=== PATIENT | female | born 1930 | race Caucasian/White ===

== ENCOUNTER 2016-06-17 21:31 | Emergency (ER) | payer OTHER ==
[~2016-06-17] VITALS: Ht 152.4 cm; Wt 66.8 kg
[~2016-06-17 21:31] MED LIST: ASCORBIC ACID500 M3 PO; ASPIRIN325 MG PO; ATENOLOL50 MG PO; CEPHALEXIN500 MG PO; CITRACAL + D E1 EACH PO; CITRACAL PLUS1 EAC1 PO; CYANOCOBALAM1000 MCG PO; CYMBALTA60 MG PO; DAILY VALUE1 EACH PO; DAILY VITE1 EAC1 PO; FERROUS SULFAT325 MG PO; FLONASE16 G1 BOTH NARES; FLORASTOR250 MG PO; GEMFIBROZIL600 MG PO; HYZAAR 100-11 TABLET PO; KLOR-CON 88 MEQ PO; LEVOTHYROXINE50 MCG PO; LISINOPRIL20 MG PO; LITE COAT ASPI325 M1 PO; LOSARTAN-HCTZ1 EAC2 PO; METRONIDAZOLE500 MG PO; MULTIVITAMIN1 EAC2 PO; PERCOCET 5/31 TABLET PO; PRILOSEC OTC20 MG PO; PRINIVIL20 MG PO; RANITIDINE HCL150 MG PO; SYNTHROID50 MCG PO; VITAMIN B-6100 MG PO; VITAMIN D-32000 UNI2 PO; VITAMIN D2000 UNIT PO; VITAMIN D31000 UNIT PO; [UNRECOGNIZED DRUG - OTHER] TP; [UNRECOGNIZED DRUG - OTHER] TP
[2016-06-17 21:50] LABS: POINT-OF-CARE METER ID UU13113778; POINT-OF-CARE USER ID NUTMMM10
[2016-06-17 22:05] LABS: HEMATOCRIT 44.8 % (36.0-46.0); MCH 30.2 PG (29.0-34.0); MCHC 33.3 G/DL (30.0-36.0); MCV 90.9 FL (83-99); MEAN PLAT.VOLUME 10.9 uM^3 (9.5-12.4); PLATELET COUNT 175 K/uL (156-360); RBC DIS.WIDTH-CV 12.9 % (11.8-14.6); RBC DIS.WIDTH-SD 41.9 % (39-53); RED BLOOD COUNT 4.93 M/uL (3.80-5.20)
[2016-06-17 22:09] LABS: CHLORIDE 105 mEq/L (99-109); POTASSIUM 4.2 mEq/L (3.7-5.4); SODIUM 141 mEq/L (136-147)
[2016-06-17 22:12] LABS: GLUCOSE 379 mg/dL (70-99)
[2016-06-17 22:13] LABS: ANION GAP 14 MEQ/L (2-14); TOTAL BILIRUBIN 0.4 mg/dL (0.0-1.0)
[2016-06-17 22:15] LABS: ALKALINE PHOSPHATASE 71 IU/L (3-129); GFR ESTIMATE (CALCULATED) 41 mL/min/
[2016-06-17 22:16] LABS: UREA NITROGEN (BUN) 25 mg/dL (9-23)
[2016-06-17 22:40] LABS: ADD MIUA? NO; BILIRUBIN NEGATIVE; BLOOD NEGATIVE; COLOR YELLOW ((YELLOW)); GLUCOSE (STRIP) >=500; KETONES 5; LEUKOCYTES NEGATIVE; NITRITE NEGATIVE; PROTEIN (STRIP) NEGATIVE; SPECIFIC GRAVITY 1.016 (1.000-1.030); UCUL ADDED? NO; UROBILINOGEN 0.2 MG/DL (0.2-1.0)
[2016-06-18] VITALS: BP 146/81
[2016-06-18 00:10] LABS: POINT-OF-CARE METER ID UU13113702
== END 2016-06-18 00:26 | disposition home or self-care (01) ==
LOC: EME 21:31
PROVIDERS: Emergency Medicine
DX: E11.65 Type 2 diabetes mellitus with hyperglycemia (principal)
CPT/HCPCS: 80053; 81003; 82948; 85027; 99281; 99285; J7030

== ENCOUNTER 2016-08-04 01:42 | Inpatient (IN) | payer OTHER ==
[~2016-08-04] VITALS: Ht 157.5 cm; Wt 66.4 kg
[2016-08-04 02:13] LABS: HEMATOCRIT 43.4 % (36.0-46.0); MCH 29.7 PG (29.0-34.0); MCHC 32.7 G/DL (30.0-36.0); MCV 90.8 FL (83-99); MEAN PLAT.VOLUME 10.7 uM^3 (9.5-12.4); PLATELET COUNT 216 K/uL (156-360); RBC DIS.WIDTH-CV 12.3 % (11.8-14.6); RBC DIS.WIDTH-SD 41.2 % (39-53); RED BLOOD COUNT 4.78 M/uL (3.80-5.20); WHITE BLOOD COUNT 11.4 K/uL (4.1-10.2)
[2016-08-04 02:22] LABS: CHLORIDE 104 mEq/L (99-109); POTASSIUM 4.4 mEq/L (3.7-5.4); SODIUM 140 mEq/L (136-147)
[2016-08-04 02:25] LABS: GLUCOSE 145 mg/dL (70-99)
[2016-08-04 02:26] LABS: ANION GAP 13 MEQ/L (2-14)
[2016-08-04 02:27] LABS: TOTAL BILIRUBIN 0.6 mg/dL (0.0-1.0)
[2016-08-04 02:28] LABS: ALKALINE PHOSPHATASE 64 IU/L (3-129); GFR ESTIMATE (CALCULATED) 50 mL/min/
[2016-08-04 02:29] LABS: UREA NITROGEN (BUN) 30 mg/dL (9-23)
[2016-08-04 02:32] LABS: LIPASE 169 U/L (1.0-51.0)
[2016-08-04 02:35] LABS: TROP-I INTERPRETATION NEGATIVE; TROPONIN-I < 0.01 ng/mL (0.0-0.30)
[2016-08-04 02:48] LABS: ADD MIUA? YES; BILIRUBIN NEGATIVE; BLOOD SMALL; COLOR YELLOW ((YELLOW)); GLUCOSE (STRIP) NEGATIVE; KETONES NEGATIVE; LEUKOCYTES LARGE; NITRITE POSITIVE; PROTEIN (STRIP) NEGATIVE; SPECIFIC GRAVITY 1.006 (1.000-1.030); UROBILINOGEN 0.2 MG/DL (0.2-1.0)
[2016-08-04 03:04] LABS: BACTERIA 2+ /HPF; EPITHELIAL CELLS RARE /HPF; MUCUS NONE SEEN /LPF; RED BLOOD CELLS 0-5 /HPF (0-5); UCUL ADDED? YES; WHITE BLOOD CELLS TNTC /HPF (0-5)
[2016-08-04 03:05] LABS: CASTS NONE SEEN /LPF; CRYSTALS NONE SEEN
[2016-08-04 03:26] LABS: BICARBONATE 25.2 mEq/L (22-26); CARBOXY HGB 1.7 % (0-5); COMMENTS - BLOOD GASES C+; FI02 21 %; METHEMOGLOBIN 0.9 % (0-1.5); PCO2 38 mm Hg (35-45); PO2 84 mm Hg (80-100); SITE LR; pH 7.43 (7.35-7.45)
[2016-08-04] MEDS ORDERED: ROSUVASTATIN CA20 MG PO (06:18)
[2016-08-04] MEDS ORDERED: ATENOLOL50 MG PO ×2 (06:19→07:44)
[2016-08-04] MEDS ORDERED: AMLODIPINE BESYL5 MG PO (07:46)
[2016-08-04] MEDS ORDERED: NYSTATIN15 G1 TP (07:47)
[2016-08-04] MEDS ORDERED: MAGNESIUM250 MG PO (07:47)
[2016-08-04 08:30] VITALS: BP 146/66
[2016-08-04 19:47] VITALS: BP 132/61
[2016-08-04 23:10] VITALS: BP 158/71
[2016-08-05 06:48] LABS: EOSINOPHIL (%) 1.5 % (0-5); EOSINOPHIL COUNT 0.2 K/uL (0-0.3); IMMATURE GRANULOCYTE (%) 0.6 % (0.0-0.7); IMMATURE GRANULOCYTE COUNT 0.1 K/uL; INSTRUMENT ABS NEUTROPHIL CT 7.3 K/uL; MCH 29.2 PG (29.0-34.0); MCHC 32.5 G/DL (30.0-36.0); MEAN PLAT.VOLUME 10.8 uM^3 (9.5-12.4); MONOCYTE (%) 6.4 % (3-12); MONOCYTE COUNT 0.7 K/uL (0-0.8); NEUTROPHIL (%) 71.7 % (45-76); NEUTROPHIL COUNT 7.3 K/uL (1.8-6.4); PLATELET COUNT 190 K/uL (156-360); RBC DIS.WIDTH-CV 12.4 % (11.8-14.6); RBC DIS.WIDTH-SD 41.1 % (39-53); RED BLOOD COUNT 4.89 M/uL (3.80-5.20); WHITE BLOOD COUNT 10.1 K/uL (4.1-10.2)
[2016-08-05 07:17] LABS: ANION GAP 11 MEQ/L (2-14); CHLORIDE 106 MEQ/L (99-109); GFR ESTIMATE (CALCULATED) > 59 mL/min/; GLUCOSE 139 mg/dL (70-99); POTASSIUM 3.9 MEQ/L (3.7-5.4); SAMPLE HEMOLYSIS CHECK 0; SAMPLE ICTERIC CHECK 0; SAMPLE LIPEMIA CHECK 0; SODIUM 141 MEQ/L (136-147); UREA NITROGEN (BUN) 16 mg/dL (9-23)
[2016-08-05 08:00] VITALS: BP 174/80
[2016-08-05 11:06] VITALS: BP 140/78
[2016-08-05 15:13] VITALS: BP 140/65
[2016-08-05 15:53] VITALS: BP 139/70
[2016-08-06 00:13] VITALS: BP 170/82
[2016-08-06 10:31] VITALS: BP 141/66
[2016-08-06] MEDS ORDERED: BACTRIM,SEPT1 TABLET PO (11:15)
[2016-08-06] MEDS ORDERED: ATORVASTATIN CA40 MG PO (11:19)
[2016-08-06 12:51] VITALS: BP 141/73
== END 2016-08-06 15:03 | disposition home health service (06) | DRG 689 ==
LOC: EME → EDBD 01:42 → EDOF 06:24 → 5SOUTH 06:24
PROVIDERS: Emergency Medicine; Hospitalist
DX: N39.0 Urinary tract infection, site not specified (principal); K52.9 Noninfective gastroenteritis and colitis, unspecified; G93.40 Encephalopathy, unspecified; F03.90 Unspecified dementia, unspecified severity, without behavioral disturbance, psychotic disturbance, mood disturbance, and anxiety; E78.00 Pure hypercholesterolemia, unspecified; K21.9 Gastro-esophageal reflux disease without esophagitis; E03.9 Hypothyroidism, unspecified; B96.20 Unspecified Escherichia coli [E. coli] as the cause of diseases classified elsewhere; I10 Essential (primary) hypertension; Z86.718 Personal history of other venous thrombosis and embolism
CPT/HCPCS: 36600; 70450; 71020; 74176; 80048; 80053; 81003; 82803; 83605; 83690; 84484; 85025; 85027; 87040; 87077; 87086; 87186; 93005; 99281; 99284; J0696; J1644; J7030; J7050

== ENCOUNTER 2016-08-20 18:58 | Inpatient (IN) | payer OTHER ==
[~2016-08-20] VITALS: Ht 152.4 cm; Wt 62.5 kg
[~2016-08-20 18:58] MED LIST changes: +AMLODIPINE BESYL5 MG PO; +ATORVASTATIN CA40 MG PO; +BACTRIM,SEPT1 TABLET PO; +MAGNESIUM250 MG PO; +NYSTATIN15 G1 TP; +ROSUVASTATIN CA20 MG PO
[2016-08-20 19:44] LABS: HEMATOCRIT 40.3 % (36.0-46.0); MCH 29.6 PG (29.0-34.0); MCHC 32.5 G/DL (30.0-36.0); MCV 91.2 FL (83-99); MEAN PLAT.VOLUME 10.5 uM^3 (9.5-12.4); PLATELET COUNT 214 K/uL (156-360); RBC DIS.WIDTH-CV 12.7 % (11.8-14.6); RBC DIS.WIDTH-SD 42.6 % (39-53); RED BLOOD COUNT 4.42 M/uL (3.80-5.20); WHITE BLOOD COUNT 16.3 K/uL (4.1-10.2)
[2016-08-20 19:52] LABS: CHLORIDE 103 mEq/L (99-109); POTASSIUM 4.5 mEq/L (3.7-5.4); SODIUM 136 mEq/L (136-147)
[2016-08-20 19:55] LABS: GLUCOSE 173 mg/dL (70-99)
[2016-08-20 19:56] LABS: ANION GAP 10 MEQ/L (2-14); TOTAL BILIRUBIN 0.6 mg/dL (0.0-1.0)
[2016-08-20 19:58] LABS: ALKALINE PHOSPHATASE 64 IU/L (3-129); GFR ESTIMATE (CALCULATED) 50 mL/min/
[2016-08-20 19:59] LABS: UREA NITROGEN (BUN) 22 mg/dL (9-23)
[2016-08-20 20:13] LABS: ADD MIUA? NO; BILIRUBIN NEGATIVE; BLOOD NEGATIVE; COLOR YELLOW ((YELLOW)); GLUCOSE (STRIP) NEGATIVE; KETONES NEGATIVE; LEUKOCYTES NEGATIVE; NITRITE NEGATIVE; PROTEIN (STRIP) NEGATIVE; UCUL ADDED? NO; UROBILINOGEN 0.2 MG/DL (0.2-1.0)
[2016-08-20 21:47] LABS: C DIFF TOXIN POSITIVE (NEGATIVE)
[2016-08-20 22:02] LABS: PROBE CHECK PASS
[2016-08-20] MEDS ORDERED: KLOR-CON 88 MEQ PO (22:33)
[2016-08-21 03:42] VITALS: BP 156/68
[2016-08-21 07:59] VITALS: BP 148/66
[2016-08-21 12:06] VITALS: BP 142/76
[2016-08-21 15:45] VITALS: BP 128/64
[2016-08-21 19:51] VITALS: BP 160/70
[2016-08-21 23:55] VITALS: BP 152/68
[2016-08-22 08:03] VITALS: BP 136/68
[2016-08-22 10:33] LABS: ANION GAP 10 MEQ/L (2-14); CHLORIDE 107 MEQ/L (99-109); GFR ESTIMATE (CALCULATED) > 59 mL/min/; POTASSIUM 3.8 MEQ/L (3.7-5.4); SAMPLE HEMOLYSIS CHECK 0; SAMPLE ICTERIC CHECK 0; SAMPLE LIPEMIA CHECK 0; SODIUM 142 MEQ/L (136-147); UREA NITROGEN (BUN) 7 mg/dL (9-23)
[2016-08-22 10:34] LABS: GLUCOSE 105 mg/dL (70-99)
[2016-08-22 10:41] LABS: TROP-I INTERPRETATION NEGATIVE; TROPONIN-I < 0.01 ng/mL (0.0-0.30)
[2016-08-22 10:51] LABS: EOSINOPHIL (%) 2.1 % (0-5); EOSINOPHIL COUNT 0.2 K/uL (0-0.3); HEMATOCRIT 40.5 % (36.0-46.0); IMMATURE GRANULOCYTE (%) 0.4 % (0.0-0.7); LYMPHOCYTE COUNT 1.6 K/uL (1.0-2.8); MCH 29.5 PG (29.0-34.0); MCHC 31.9 G/DL (30.0-36.0); MCV 92.7 FL (83-99); MEAN PLAT.VOLUME 10.6 uM^3 (9.5-12.4); MONOCYTE (%) 7.2 % (3-12); MONOCYTE COUNT 0.6 K/uL (0-0.8); NEUTROPHIL (%) 70.6 % (45-76); PLATELET COUNT 199 K/uL (156-360); RBC DIS.WIDTH-CV 12.7 % (11.8-14.6); RBC DIS.WIDTH-SD 43.5 % (39-53); RED BLOOD COUNT 4.37 M/uL (3.80-5.20); WHITE BLOOD COUNT 8.4 K/uL (4.1-10.2)
[2016-08-22 12:23] LABS: D-DIMER ELISA 0.83 mg/L FEU (< 0.57)
[2016-08-22 15:47] VITALS: BP 126/62
[2016-08-23 00:03] VITALS: BP 143/68
[2016-08-23 00:07] VITALS: BP 143/68
[2016-08-23 07:49] VITALS: BP 140/68
[2016-08-23 14:52] VITALS: BP 139/71
[2016-08-23 23:21] VITALS: BP 143/69
[2016-08-24 06:20] LABS: HEMATOCRIT 39.6 % (36.0-46.0); MCH 29.6 PG (29.0-34.0); MCHC 32.3 G/DL (30.0-36.0); MCV 91.7 FL (83-99); MEAN PLAT.VOLUME 10.4 uM^3 (9.5-12.4); PLATELET COUNT 208 K/uL (156-360); RBC DIS.WIDTH-CV 12.6 % (11.8-14.6); RBC DIS.WIDTH-SD 42.5 % (39-53); RED BLOOD COUNT 4.32 M/uL (3.80-5.20); WHITE BLOOD COUNT 6.2 K/uL (4.1-10.2)
[2016-08-24 06:39] LABS: ANION GAP 8 MEQ/L (2-14); CHLORIDE 108 MEQ/L (99-109); GFR ESTIMATE (CALCULATED) 56 mL/min/; GLUCOSE 107 mg/dL (70-99); POTASSIUM 3.9 MEQ/L (3.7-5.4); SAMPLE HEMOLYSIS CHECK 0; SAMPLE ICTERIC CHECK 0; SAMPLE LIPEMIA CHECK 0; SODIUM 142 MEQ/L (136-147); UREA NITROGEN (BUN) 5 mg/dL (9-23)
[2016-08-24 07:31] VITALS: BP 128/62
[2016-08-24 15:39] VITALS: BP 126/60
[2016-08-24 19:41] VITALS: BP 162/69
[2016-08-24 23:31] VITALS: BP 173/74
[2016-08-25 02:00] VITALS: BP 182/79
[2016-08-25 04:41] VITALS: BP 132/62
[2016-08-25 07:24] VITALS: BP 128/72
[2016-08-25 15:32] VITALS: BP 110/64
[2016-08-25 21:12] VITALS: BP 158/78
[2016-08-25 23:25] VITALS: BP 158/71
[2016-08-26 07:56] VITALS: BP 137/71
[2016-08-26] MEDS ORDERED: VANCOMYCIN HCL125 MG PO (12:42)
== END 2016-08-26 15:30 | DRG 373 ==
LOC: EME → EDBD 18:58 → EME 18:58 → EDOF 08-21 02:23 → 5SOUTH 08-21 02:23
PROVIDERS: Emergency Medicine; Hospitalist; Internal Medicine; Physician Assistant Medical
DX: A04.7 Enterocolitis due to Clostridium difficile (principal); E86.0 Dehydration; R62.7 Adult failure to thrive; R07.89 Other chest pain; I10 Essential (primary) hypertension; G30.1 Alzheimer's disease with late onset; F02.80 Dementia in other diseases classified elsewhere, unspecified severity, without behavioral disturbance, psychotic disturbance, mood disturbance, and anxiety; E78.00 Pure hypercholesterolemia, unspecified; K21.9 Gastro-esophageal reflux disease without esophagitis; E03.9 Hypothyroidism, unspecified; R32 Unspecified urinary incontinence; Z79.82 Long term (current) use of aspirin; Z86.718 Personal history of other venous thrombosis and embolism; Z87.440 Personal history of urinary (tract) infections
CPT/HCPCS: 71010; 80048; 80053; 81003; 84443; 84484; 85025; 85027; 85379; 87177; 87329; 87493; 93005; 93970; 99281; 99285; J0360; J1644; J2270; J2405; J7030; S0030

== ENCOUNTER 2016-09-11 13:24 | Inpatient (IN) | payer OTHER ==
[~2016-09-11] VITALS: Ht 154.9 cm; Wt 61.4 kg
[~2016-09-11 13:24] MED LIST changes: +VANCOMYCIN HCL125 MG PO
[2016-09-11 14:47] LABS: EOSINOPHIL (%) 2.1 % (0-5); EOSINOPHIL COUNT 0.2 K/uL (0-0.3); IMMATURE GRANULOCYTE (%) 0.4 % (0.0-0.7); INSTRUMENT ABS NEUTROPHIL CT 5.3 K/uL; LYMPHOCYTE COUNT 1.3 K/uL (1.0-2.8); MCH 29.6 PG (29.0-34.0); MCV 92.4 FL (83-99); MEAN PLAT.VOLUME 10.9 uM^3 (9.5-12.4); MONOCYTE (%) 7.1 % (3-12); MONOCYTE COUNT 0.5 K/uL (0-0.8); NEUTROPHIL (%) 72.5 % (45-76); NEUTROPHIL COUNT 5.3 K/uL (1.8-6.4); PLATELET COUNT 260 K/uL (156-360); RBC DIS.WIDTH-SD 44.2 % (39-53); RED BLOOD COUNT 4.76 M/uL (3.80-5.20); WHITE BLOOD COUNT 7.3 K/uL (4.1-10.2)
[2016-09-11 15:05] LABS: ADD MIUA? NO; BILIRUBIN NEGATIVE; BLOOD NEGATIVE; COLOR STRAW ((YELLOW)); GLUCOSE (STRIP) NEGATIVE; KETONES NEGATIVE; LEUKOCYTES NEGATIVE; NITRITE NEGATIVE; PROTEIN (STRIP) NEGATIVE; SPECIFIC GRAVITY 1.004 (1.000-1.030); UROBILINOGEN 0.2 MG/DL (0.2-1.0)
[2016-09-11 15:06] LABS: CHLORIDE 105 mEq/L (99-109); POTASSIUM 4.4 mEq/L (3.7-5.4); SODIUM 143 mEq/L (136-147)
[2016-09-11 15:08] LABS: GLUCOSE 117 mg/dL (70-99)
[2016-09-11 15:09] LABS: ANION GAP 10 MEQ/L (2-14)
[2016-09-11 15:12] LABS: GFR ESTIMATE (CALCULATED) 56 mL/min/
[2016-09-11 15:13] LABS: UREA NITROGEN (BUN) 19 mg/dL (9-23)
[2016-09-11 17:00] VITALS: BP 158/72
[2016-09-11 19:57] VITALS: BP 130/60
[2016-09-11 23:53] VITALS: BP 155/82
[2016-09-12] VITALS (7 sets, daily range): BP systolic 133–178; BP diastolic 62–81
[2016-09-12 10:00] LABS: C DIFF TOXIN POSITIVE (NEGATIVE)
[2016-09-12 10:02] LABS: PROBE CHECK PASS
[2016-09-13] VITALS (7 sets, daily range): BP systolic 96–133; BP diastolic 54–73
[2016-09-13 09:55] LABS: ANION GAP 15 MEQ/L (2-14); CHLORIDE 102 MEQ/L (99-109); GFR ESTIMATE (CALCULATED) > 59 mL/min/; GLUCOSE 147 mg/dL (70-99); SAMPLE HEMOLYSIS CHECK 0; SAMPLE ICTERIC CHECK 0; SAMPLE LIPEMIA CHECK 0; SODIUM 138 MEQ/L (136-147); UREA NITROGEN (BUN) 12 mg/dL (9-23)
[2016-09-13 09:56] LABS: POTASSIUM 3.1 MEQ/L (3.7-5.4)
[2016-09-13 10:14] LABS: MCH 30.4 PG (29.0-34.0); MCHC 33.5 G/DL (30.0-36.0); MCV 90.9 FL (83-99); MEAN PLAT.VOLUME 11.2 uM^3 (9.5-12.4); PLATELET COUNT 259 K/uL (156-360); RBC DIS.WIDTH-CV 13.2 % (11.8-14.6); RBC DIS.WIDTH-SD 43.6 % (39-53); RED BLOOD COUNT 4.73 M/uL (3.80-5.20); WHITE BLOOD COUNT 26.1 K/uL (4.1-10.2)
[2016-09-14 00:49] VITALS: BP 166/68
[2016-09-14 04:45] VITALS: BP 126/63
[2016-09-14 07:30] VITALS: BP 148/68
[2016-09-14 07:49] LABS: CHLORIDE 115 mEq/L (99-109); POTASSIUM 3.1 mEq/L (3.7-5.4); SODIUM 140 mEq/L (136-147)
[2016-09-14 07:52] LABS: ANION GAP 5 MEQ/L (2-14)
[2016-09-14 07:54] LABS: HEMATOCRIT 39.1 % (36.0-46.0); MCHC 33.2 G/DL (30.0-36.0); MCV 90.3 FL (83-99); MEAN PLAT.VOLUME 11.1 uM^3 (9.5-12.4); PLATELET COUNT 174 K/uL (156-360); RBC DIS.WIDTH-CV 13.1 % (11.8-14.6); RBC DIS.WIDTH-SD 43.5 % (39-53); RED BLOOD COUNT 4.33 M/uL (3.80-5.20); WHITE BLOOD COUNT 11.8 K/uL (4.1-10.2)
[2016-09-14 07:55] LABS: GFR ESTIMATE (CALCULATED) > 59 mL/min/; UREA NITROGEN (BUN) 8 mg/dL (9-23)
[2016-09-14 08:15] LABS: GLUCOSE 104 mg/dL (70-99)
[2016-09-14 11:42] VITALS: BP 166/77
[2016-09-14 16:09] VITALS: BP 161/73
[2016-09-14 19:00] VITALS: BP 120/80
[2016-09-15] VITALS (7 sets, daily range): BP systolic 114–158; BP diastolic 60–87
[2016-09-15 05:54] LABS: HEMATOCRIT 37.7 % (36.0-46.0); MCH 29.9 PG (29.0-34.0); MCHC 33.4 G/DL (30.0-36.0); MCV 89.5 FL (83-99); MEAN PLAT.VOLUME 10.9 uM^3 (9.5-12.4); PLATELET COUNT 196 K/uL (156-360); RBC DIS.WIDTH-SD 42.5 % (39-53); RED BLOOD COUNT 4.21 M/uL (3.80-5.20); WHITE BLOOD COUNT 8.8 K/uL (4.1-10.2)
[2016-09-15 06:23] LABS: ALKALINE PHOSPHATASE 46 IU/L (3-129); ANION GAP 13 MEQ/L (2-14); CHLORIDE 108 MEQ/L (99-109); GFR ESTIMATE (CALCULATED) > 59 mL/min/; GLUCOSE 80 mg/dL (70-99); POTASSIUM 3.2 MEQ/L (3.7-5.4); SAMPLE HEMOLYSIS CHECK 0; SAMPLE ICTERIC CHECK 0; SAMPLE LIPEMIA CHECK 0; SODIUM 141 MEQ/L (136-147); TOTAL BILIRUBIN 0.4 MG/DL (0.0-1.0); UREA NITROGEN (BUN) 7 mg/dL (9-23)
[2016-09-15 09:08] LABS: MAGNESIUM 1.5 mg/dl (1.3-2.7)
[2016-09-16 03:45] VITALS: BP 149/79
[2016-09-16 08:05] VITALS: BP 159/71
[2016-09-16 10:30] LABS: CHLORIDE 111 mEq/L (99-109); POTASSIUM 3.8 mEq/L (3.7-5.4); SODIUM 142 mEq/L (136-147)
[2016-09-16 10:33] LABS: ANION GAP 14 MEQ/L (2-14)
[2016-09-16 10:34] LABS: TOTAL BILIRUBIN 0.3 mg/dL (0.0-1.0)
[2016-09-16 10:36] LABS: ALKALINE PHOSPHATASE 51 IU/L (3-129); GFR ESTIMATE (CALCULATED) > 59 mL/min/
[2016-09-16 10:37] LABS: GLUCOSE 118 mg/dL (70-99); UREA NITROGEN (BUN) 7 mg/dL (9-23)
[2016-09-16 12:08] VITALS: BP 145/83
[2016-09-16 17:30] VITALS: BP 161/71
[2016-09-16 19:30] VITALS: BP 165/77
[2016-09-16 23:00] VITALS: BP 167/75
[2016-09-17 03:45] VITALS: BP 141/85
[2016-09-17 08:30] VITALS: BP 149/67
[2016-09-17 10:11] LABS: HEMATOCRIT 39.6 % (36.0-46.0); MCH 29.6 PG (29.0-34.0); MCHC 33.1 G/DL (30.0-36.0); MCV 89.6 FL (83-99); PLATELET COUNT 226 K/uL (156-360); RBC DIS.WIDTH-CV 13.2 % (11.8-14.6); RBC DIS.WIDTH-SD 43.7 % (39-53); RED BLOOD COUNT 4.42 M/uL (3.80-5.20); WHITE BLOOD COUNT 9.9 K/uL (4.1-10.2)
[2016-09-17 10:53] LABS: ANION GAP 14 MEQ/L (2-14); CHLORIDE 112 MEQ/L (99-109); GFR ESTIMATE (CALCULATED) > 59 mL/min/; GLUCOSE 107 mg/dL (70-99); POTASSIUM 3.6 MEQ/L (3.7-5.4); SAMPLE HEMOLYSIS CHECK 0; SAMPLE ICTERIC CHECK 0; SAMPLE LIPEMIA CHECK 0; SODIUM 143 MEQ/L (136-147); UREA NITROGEN (BUN) 6 mg/dL (9-23)
[2016-09-17 16:00] VITALS: BP 152/74
[2016-09-17 22:59] VITALS: BP 143/72
[2016-09-18 07:33] VITALS: BP 115/56
[2016-09-18 09:27] LABS: HEMATOCRIT 40.3 % (36.0-46.0); MCH 30.4 PG (29.0-34.0); MCHC 33.7 G/DL (30.0-36.0); MCV 90.2 FL (83-99); MEAN PLAT.VOLUME 10.6 uM^3 (9.5-12.4); PLATELET COUNT 211 K/uL (156-360); RBC DIS.WIDTH-CV 13.2 % (11.8-14.6); RBC DIS.WIDTH-SD 43.6 % (39-53); RED BLOOD COUNT 4.47 M/uL (3.80-5.20); WHITE BLOOD COUNT 11.5 K/uL (4.1-10.2)
[2016-09-18 09:39] LABS: POINT-OF-CARE METER ID UU13113725
[2016-09-18 10:07] LABS: ANION GAP 7 MEQ/L (2-14); CHLORIDE 110 MEQ/L (99-109); GFR ESTIMATE (CALCULATED) > 59 mL/min/; GLUCOSE 102 mg/dL (70-99); POTASSIUM 3.2 MEQ/L (3.7-5.4); SAMPLE HEMOLYSIS CHECK 0; SAMPLE ICTERIC CHECK 0; SAMPLE LIPEMIA CHECK 0; SODIUM 142 MEQ/L (136-147); UREA NITROGEN (BUN) 5 mg/dL (9-23)
[2016-09-18 13:11] LABS: BASE EXCESS -2.4 mEq/L (-3 to +3); BICARBONATE 21.6 mEq/L (22-26); METHEMOGLOBIN 1.2 % (0-1.5); PCO2 34 mm Hg (35-45); PO2 81 mm Hg (80-100); pH 7.41 (7.35-7.45)
[2016-09-18 13:12] LABS: COMMENTS - BLOOD GASES NAC+; FI02 21 %; SITE RR
[2016-09-18 17:43] VITALS: BP 120/82
[2016-09-19 07:35] VITALS: BP 136/65
[2016-09-19 09:28] LABS: HEMATOCRIT 40.3 % (36.0-46.0); MCH 30.1 PG (29.0-34.0); MCHC 33.5 G/DL (30.0-36.0); MCV 89.8 FL (83-99); MEAN PLAT.VOLUME 10.5 uM^3 (9.5-12.4); PLATELET COUNT 224 K/uL (156-360); RBC DIS.WIDTH-CV 13.2 % (11.8-14.6); RBC DIS.WIDTH-SD 43.4 % (39-53); RED BLOOD COUNT 4.49 M/uL (3.80-5.20); WHITE BLOOD COUNT 13.6 K/uL (4.1-10.2)
[2016-09-19 09:52] LABS: ANION GAP 15 MEQ/L (2-14); CHLORIDE 108 MEQ/L (99-109); GFR ESTIMATE (CALCULATED) > 59 mL/min/; GLUCOSE 81 mg/dL (70-99); POTASSIUM 3.4 MEQ/L (3.7-5.4); SAMPLE HEMOLYSIS CHECK 0; SAMPLE ICTERIC CHECK 0; SAMPLE LIPEMIA CHECK 0; SODIUM 144 MEQ/L (136-147); UREA NITROGEN (BUN) 5 mg/dL (9-23)
[2016-09-19 12:11] VITALS: BP 136/78
[2016-09-19 15:49] VITALS: BP 125/57
[2016-09-19 16:57] LABS: ADD MIUA? YES; BILIRUBIN NEGATIVE; BLOOD SMALL; COLOR YELLOW ((YELLOW)); GLUCOSE (STRIP) NEGATIVE; KETONES 20; LEUKOCYTES LARGE; NITRITE POSITIVE; PROTEIN (STRIP) 100; SPECIFIC GRAVITY 1.013 (1.000-1.030); UROBILINOGEN 0.2 MG/DL (0.2-1.0)
[2016-09-19 17:21] LABS: UCUL ADDED? YES; WHITE BLOOD CELLS TNTC /HPF (0-5)
[2016-09-20 00:15] VITALS: BP 136/78
[2016-09-20 05:40] LABS: HEMATOCRIT 42.3 % (36.0-46.0); MCH 30.3 PG (29.0-34.0); MCHC 33.8 G/DL (30.0-36.0); MCV 89.6 FL (83-99); MEAN PLAT.VOLUME 10.7 uM^3 (9.5-12.4); PLATELET COUNT 223 K/uL (156-360); RBC DIS.WIDTH-CV 13.3 % (11.8-14.6); RBC DIS.WIDTH-SD 43.6 % (39-53); RED BLOOD COUNT 4.72 M/uL (3.80-5.20)
[2016-09-20 06:24] LABS: ANION GAP 13 MEQ/L (2-14); CHLORIDE 106 MEQ/L (99-109); GFR ESTIMATE (CALCULATED) > 59 mL/min/; SAMPLE HEMOLYSIS CHECK 0; SAMPLE ICTERIC CHECK 0; SAMPLE LIPEMIA CHECK 0; SODIUM 143 MEQ/L (136-147); UREA NITROGEN (BUN) 7 mg/dL (9-23)
[2016-09-20 06:27] LABS: GLUCOSE 102 mg/dL (70-99)
[2016-09-20 08:18] VITALS: BP 130/74
[2016-09-20 16:22] VITALS: BP 130/72
[2016-09-20 22:56] VITALS: BP 142/79
[2016-09-21 08:06] VITALS: BP 139/59
[2016-09-21 09:10] LABS: HEMATOCRIT 39.2 % (36.0-46.0); MCH 29.9 PG (29.0-34.0); MCHC 33.4 G/DL (30.0-36.0); MCV 89.5 FL (83-99); MEAN PLAT.VOLUME 10.7 uM^3 (9.5-12.4); PLATELET COUNT 233 K/uL (156-360); RBC DIS.WIDTH-CV 13.5 % (11.8-14.6); RBC DIS.WIDTH-SD 44.4 % (39-53); RED BLOOD COUNT 4.38 M/uL (3.80-5.20)
[2016-09-21 09:34] LABS: ANION GAP 15 MEQ/L (2-14); CHLORIDE 108 MEQ/L (99-109); GFR ESTIMATE (CALCULATED) > 59 mL/min/; GLUCOSE 138 mg/dL (70-99); POTASSIUM 3.6 MEQ/L (3.7-5.4); SAMPLE HEMOLYSIS CHECK 0; SAMPLE ICTERIC CHECK 0; SAMPLE LIPEMIA CHECK 0; SODIUM 142 MEQ/L (136-147); UREA NITROGEN (BUN) 7 mg/dL (9-23)
[2016-09-22 03:43] VITALS: BP 154/64
[2016-09-22 06:58] VITALS: BP 158/72
[2016-09-22 15:52] VITALS: BP 141/72
[2016-09-23] VITALS: BP 132/99
[2016-09-23 07:07] LABS: MCH 29.9 PG (29.0-34.0); MCHC 33.8 G/DL (30.0-36.0); MCV 88.4 FL (83-99); MEAN PLAT.VOLUME 11.3 uM^3 (9.5-12.4); PLATELET COUNT 223 K/uL (156-360); RBC DIS.WIDTH-CV 13.2 % (11.8-14.6); RBC DIS.WIDTH-SD 43.1 % (39-53); RED BLOOD COUNT 4.41 M/uL (3.80-5.20); WHITE BLOOD COUNT 15.5 K/uL (4.1-10.2)
[2016-09-23 07:35] LABS: ANION GAP 14 MEQ/L (2-14); CHLORIDE 101 MEQ/L (99-109); GFR ESTIMATE (CALCULATED) > 59 mL/min/; GLUCOSE 161 mg/dL (70-99); SAMPLE HEMOLYSIS CHECK 0; SAMPLE ICTERIC CHECK 0; SAMPLE LIPEMIA CHECK 0; SODIUM 140 MEQ/L (136-147); UREA NITROGEN (BUN) 9 mg/dL (9-23)
[2016-09-23 08:57] VITALS: BP 140/80
[2016-09-23 17:44] VITALS: BP 152/74
[2016-09-23 23:17] VITALS: BP 117/65; BP 179/86
[2016-09-24 07:19] VITALS: BP 150/72
[2016-09-24 10:26] VITALS: BP 121/58
[2016-09-24 10:30] LABS: ANION GAP 12 MEQ/L (2-14); CHLORIDE 100 MEQ/L (99-109); POTASSIUM 3.3 MEQ/L (3.7-5.4); SAMPLE HEMOLYSIS CHECK 0; SAMPLE ICTERIC CHECK 0; SAMPLE LIPEMIA CHECK 0; SODIUM 139 MEQ/L (136-147)
[2016-09-24 10:36] LABS: GFR ESTIMATE (CALCULATED) > 59 mL/min/; GLUCOSE 129 mg/dL (70-99); UREA NITROGEN (BUN) 11 mg/dL (9-23)
[2016-09-24 16:09] VITALS: BP 142/70
[2016-09-25 00:05] VITALS: BP 167/84
[2016-09-25 07:03] LABS: ANION GAP 11 MEQ/L (2-14); CHLORIDE 104 MEQ/L (99-109); GFR ESTIMATE (CALCULATED) > 59 mL/min/; GLUCOSE 173 mg/dL (70-99); POTASSIUM 3.5 MEQ/L (3.7-5.4); SAMPLE HEMOLYSIS CHECK 0; SAMPLE ICTERIC CHECK 0; SAMPLE LIPEMIA CHECK 0; SODIUM 143 MEQ/L (136-147); UREA NITROGEN (BUN) 9 mg/dL (9-23)
[2016-09-25 07:41] VITALS: BP 172/70
[2016-09-25 16:27] VITALS: BP 146/70
[2016-09-26 00:08] VITALS: BP 144/79
[2016-09-26 08:30] VITALS: BP 176/83
[2016-09-26 16:13] VITALS: BP 158/93
[2016-09-28] MEDS ORDERED: MORPHINE CON20 MG/M1 PO (12:42)
[2016-09-28] MEDS ORDERED: ATIVAN0.5 MG PO (12:42)
[2016-09-28] MEDS ORDERED: [UNRECOGNIZED DRUG - OTHER] PO (12:43)
== END 2016-09-28 15:43 | disposition hospice, home (50) | DRG 884 ==
LOC: EME → EDBD 13:24 → 4EAST 16:30 → EDOF 16:30 → 5SOUTH 17:55 → 4EAST 09-13 16:53 → 5EAST 09-17 15:34
PROVIDERS: Emergency Medicine; Hospitalist; Internal Medicine; Physician Assistant Medical
DX: F01.50 Vascular dementia, unspecified severity, without behavioral disturbance, psychotic disturbance, mood disturbance, and anxiety (principal); G92 Toxic encephalopathy; A04.7 Enterocolitis due to Clostridium difficile; F05 Delirium due to known physiological condition; N39.0 Urinary tract infection, site not specified; I10 Essential (primary) hypertension; E78.5 Hyperlipidemia, unspecified; I73.9 Peripheral vascular disease, unspecified; E03.9 Hypothyroidism, unspecified; K21.9 Gastro-esophageal reflux disease without esophagitis; R32 Unspecified urinary incontinence; B96.20 Unspecified Escherichia coli [E. coli] as the cause of diseases classified elsewhere; N81.4 Uterovaginal prolapse, unspecified; K51.50 Left sided colitis without complications; R13.10 Dysphagia, unspecified; T37.3X5A Adverse effect of other antiprotozoal drugs, initial encounter; R64 Cachexia; Z66 Do not resuscitate; Z51.5 Encounter for palliative care; Z68.27 Body mass index [BMI] 27.0-27.9, adult; Z91.19 Patient's noncompliance with other medical treatment and regimen; Z86.718 Personal history of other venous thrombosis and embolism; Z86.73 Personal history of transient ischemic attack (TIA), and cerebral infarction without residual deficits; Z87.440 Personal history of urinary (tract) infections
CPT/HCPCS: 36600; 70450; 70551; 71010; 71020; 74177; 76705; 76770; 80048; 80053; 81003; 82607; 82746; 82803; 82948; 83605; 83735; 84132 91; 84443; 85025; 85027; 87040; 87077; 87086; 87186; 87493; 92610 GN; 97530 GO; 97530 GP; 99281; 99285; J0696; J1630; J1650; J3480; J7030; J7042; J7050; S0030